=== PATIENT | female | born 1965 | race Caucasian/White ===

== ENCOUNTER 2017-11-07 02:19 | Emergency (ER) | payer BC ==
--- NOTE | 2017-11-07 02:44 | EDM.PDOC ---
ED HPI GENERAL MEDICAL PROBLEM - General Chief Complaint: Abdominal Pain Stated Complaint: LOWER LEFT ABDOMINAL PAIN Time Seen by Provider: 11/07/17 02:36 Source of Information: Reports: Patient History Limitations: Reports: No Limitations - History of Present Illness INITIAL COMMENTS - FREE TEXT/NARRATIVE: The patient states that she was woken up around midnight with lower left abdominal pain, sharp in character. It comes and goes, lasting only a moment or two, but recurring about every 20 or 30 seconds. The pain is made worse when the patient urinates, and she also reports dysuria, urinary frequency, and urinary urgency. She did not notice if there was gross hematuria. She is not certain how long her urinary symptoms have been present - they may have been present yesterday. No recent fever or chills. No recent nausea, vomiting, constipation, or diarrhea. No prior similar symptoms. The patient has not tried any home medicines or remedies. The patient states that she drove herself here, although she can call her for a ride home. The patient's PCP is Daija Cisse. Left Lower Abdomen Pain Score (Numeric/FACES): 7 - Related Data Allergies Allergy/AdvReac Type Severity Reaction Status Date / Time codeine Allergy Cannot Verified 11/07/17 02:29 Remember Sulfa (Sulfonamide Allergy Cannot Verified 11/07/17 02:29 Antibiotics) Remember IVP dye Allergy Rash Uncoded 11/07/17 02:29 Home Meds: Home Meds Multivitamin [Multivitamins] 1 each PO DAILY 09/12/13 [History] metroNIDAZOLE [metroNIDAZOLE 0.75% Cream] VAG DAILY 09/12/13 [History] Sulfamethoxazole/Trimethoprim [Bactrim Ds Tablet] 1 tab PO Q12H #10 tablet 11/07 [Rx] Past Medical History Genitourinary History: Reports: Pyelonephritis - Past Surgical History HEENT Surgical History: Reports: Oral Surgery ([place] teeth extraction) GI Surgical History: Reports: Appendectomy Female Surgical History: Reports: Section (x 1) Social & Family History - Tobacco Use Smoking Status *Q: Never Smoker - Alcohol Use Alcohol Use History: Yes Alcohol Use Frequency: Socially - Recreational Drug Use Recreational Drug Use: No - Living Situation & Occupation Living situation: Reports: , with Spouse, with Family (1 child) Occupation: Employed ([employer]) ED ROS GENERAL - Review of Systems Review Of Systems: ROS reveals no pertinent complaints other than HPI. ED EXAM, GI/ABD - Physical Exam Exam: See Below Exam Limited By: No Limitations General Appearance: Alert, WD/WN, Mild Distress (Frequent episodes of severe lower left abdominal pain cause the patient to grimace) Eyes: Bilateral: Normal Appearance, EOMI Ears: Normal External Exam, Hearing Grossly Normal Nose: Normal Inspection, No Blood Throat/Mouth: Normal Inspection, Normal Lips, Normal Voice, No Airway Compromise Head: Atraumatic, Normocephalic Neck: Normal Inspection, Full Range of Motion Respiratory/Chest: No Respiratory Distress, Lungs Clear, Normal Breath Sounds, No Accessory Muscle Use Cardiovascular: Normal Peripheral Pulses, Regular Rate, Rhythm, No Edema, No Gallop, No JVD, No Murmur, No Rub GI/Abdominal Exam: Normal Bowel Sounds, Soft, No Organomegaly, No Distention, No Abnormal Bruit, No Mass, Tender (Considerable tenderness to the left lower quadrant, upper pubic Manish, and, surprisingly, the right upper quadrant. Nontender elsewhere.) (Female) Exam: Deferred Rectal (Female) Exam: Deferred Back Exam: Normal Inspection, Full Range of Motion, CVA Tenderness (L), CVA Tenderness (R) (mild) Extremities: Normal Inspection, Normal Range of Motion, No Pedal Edema, Normal Capillary Refill Neurological: Alert, Oriented, Normal Cognition, No Motor/Sensory Deficits Psychiatric: Normal Affect Skin Exam: Warm, Dry, Intact, Normal Color, No Rash Course - Vital Signs Last Recorded V/S: Last Vital Signs Temp 36.9 C 11/07/17 02:29 Pulse 89 11/07/17 02:29 Resp 16 11/07/17 02:29 BP 138/95 H 11/07/17 02:29 Pulse Ox 100 11/07/17 02:29 - Orders/Labs/Meds Orders: Active Orders 24 hr Category Date Time Status CULTURE URINE [RM] Stat Lab 11/07/17 03:25 Ordered Nitrofurantoin [place]/Macrocryst [Macrobid] Med 11/07/17 03:27 Once 100 mg PO ONETIME ONE Phenazopyridine [Urinary Pain Relief] Med 11/07/17 03:27 Stat 95 mg PO ONETIME STA Labs: Laboratory Tests 11/07/17 Range/Units 02:35 Urine Color Yellow (Yellow) Urine Appearance Clear (Clear) Urine pH 7.0 (5.0-8.0) Ur Specific [place] 1.015 (1.005-1.030) Urine Protein 1+ H (Negative) Urine Glucose (UA) Negative (Negative) Urine Ketones Negative (Negative) Urine Occult Blood 2+ H (Negative) Urine Nitrite Positive H (Negative) Urine Bilirubin Negative (Negative) Urine Urobilinogen 0.2 (0.2-1.0) Ur Leukocyte Esterase 2+ H (Negative) Urine RBC 0-5 (0-5) /hpf Urine WBC 20-30 H (0-5) /hpf Urine WBC Clumps Moderate (NOT SEEN) /hpf Ur Epithelial Cells 0-5 (0-5) /hpf Urine Bacteria Many H (FEW) /hpf Urine Mucus Not seen (FEW) /hpf - Re-Assessments/Exams Free Text/Narrative Re-Assessment/Exam: 11/07/17 02:55 I am concerned that the patient may have a ureterolith. The patient has provided a clean-catch urine sample. If it shows a UTI without hematuria, we will stop there and treat for UTI, however, if there is hematuria, I will order a CT of the abdomen and pelvis to evaluate for a ureterolith. Depending on the urine findings, I will treat her pain with either oral or IV medication. 11/07/17 03:28 The patient's urinalysis is consistent with a UTI. I have ordered a urine culture. The patient reports an allergy to sulfa, although upon questioning, she states that it simply did not work for a prior UTI. I will therefore start her on Bactrim, along with Pyridium. There is no blood to suggest a ureterolith. Departure - Departure Time of Disposition: 03:37 Disposition: Home, Self-Care 01 Condition: Good Clinical Impression: Cystitis - Discharge Information Referrals: Daija Cisse PAYMENT POSTER [Primary Care Provider] - Forms: ED Department Discharge Additional Instructions: You were seen in the emergency room for lower left abdominal pain, pain with urination, and frequent urination. Workup in the ER included a urinalysis, which was consistent with a urinary tract infection. A sample of your urine was sent for culture. You have been started on the antibiotic Bactrim. A prescription for Bactrim has been sent to the [facility], [address] [place] [address]. Take one tablet every 12 hours, starting this evening, 11/07/2017. Finish the entire prescription unless told otherwise by Daija Cisse. You have also been started on the pain medicine Pyridium. Pyridium is available [id number] as "Azo". You may take a total of 5 additional doses - either 3 doses a day for 2 days, or 2 doses a day for 3 days. It is not recommended that you take more than 6 total doses. Stay adequately hydrated. Follow-up with your PCP, Daija Cisse, on , 11/09/2017, to check on the urine culture results, to make sure that you are on the right antibiotic. If any other problems, please do not hesitate to return to the ER. - My Orders Last 24 Hours: My Active Orders 11/07/17 03:25 CULTURE URINE [RM] Stat 11/07/17 03:27 Nitrofurantoin [place]/Macrocryst [Macrobid] 100 mg PO ONETIME ONE Phenazopyridine [Urinary Pain Relief] 95 mg PO ONETIME STA - Assessment/Plan Last 24 Hours: My Active Orders 11/07/17 03:25 CULTURE URINE [RM] Stat 11/07/17 03:27 Nitrofurantoin [place]/Macrocryst [Macrobid] 100 mg PO ONETIME ONE Phenazopyridine [Urinary Pain Relief] 95 mg PO ONETIME STA
[2017-11-07] MEDS ORDERED: Nitrofurantoin Monohydrate/Macrocrystalline 100 MG Cap PO ONE (03:27)
[2017-11-07] MEDS ORDERED: Phenazopyridine 95 MG Tab PO STA (03:27)
[2017-11-07] MEDS ORDERED: Sulfamethoxazole/Trimethoprim 800-160 MG Tab PO ONE (03:37)
== END 2017-11-07 03:56 | disposition home or self-care (01) ==
LOC: JD.ED 02:19
DX: N30.90 Cystitis, unspecified without hematuria (principal); Z79.899 Other long term (current) drug therapy; Z88.5 Allergy status to narcotic agent; Z88.2 Allergy status to sulfonamides; Z91.041 Radiographic dye allergy status
CPT/HCPCS: 81001; 87086; 99284; A9270; 87088; 87186; 99283

== ENCOUNTER 2023-08-10 08:48 | Day surgery (SDC) | payer BC ==
[~2023-08-10 08:48] MED LIST: Sodium Chloride 0.9% 10 ML Syringe FLUSH PRN; Sodium Chloride 0.9% 10 ML Syringe FLUSH SCH
[2023-08-10] MEDS: Lactated Ringers 1,000 ML IV SCH (09:15)
[2023-08-10] MEDS ORDERED: Propofol 200 MG/20 ML SDV ONE (09:19)
[2023-08-10] MEDS ORDERED: Lidocaine 1% 6 ML ONE (09:19)
[2023-08-10] MEDS ORDERED: fentaNYL 100 MCG/2 ML SDV ONE (09:20)
[2023-08-10] MEDS ORDERED: ePHEDrine 50 MG/ML SDV ONE (10:22)
== END 2023-08-10 11:30 | disposition home or self-care (01) ==
LOC: JD.SDS 08:48
PROVIDERS: ATTEND Student in an Organized Health Care Education/Training Program
DX: Z12.11 Encounter for screening for malignant neoplasm of colon (principal); D12.8 Benign neoplasm of rectum; K64.9 Unspecified hemorrhoids; I10 Essential (primary) hypertension; Z79.899 Other long term (current) drug therapy; Z88.5 Allergy status to narcotic agent; Z91.041 Radiographic dye allergy status; Z88.2 Allergy status to sulfonamides
CPT/HCPCS: 45380; J2704; J3010; J7120; 00811; J3490